=== PATIENT | female | born 1950 | race African-American/Black ===

== ENCOUNTER 2021-07-28 23:08 | Inpatient (IN) | payer OTHER ==
[~2021-07-28] VITALS: Ht 165.1 cm; Wt 81.6 kg
[2021-07-28] MEDS ORDERED: SODIUM CHLORIDE 0.9% 1,000 ML IV ONE (23:30)
[2021-07-28 23:58] LABS: BASOPHILS % 0.2 % (0.0-2.0); EOSINOPHILS % 0.2 % (0.0-5.0); HEMATOCRIT. 44.6 % (36.0-48.0); HEMOGLOBIN. 14.6 g/dL (12.0-16.0); LYMPHOCYTES % 19.6 % (20.0-50.0); MEAN CORPUSCULAR HEMOGLOBIN 27.6 pg (28.0-32.0); MEAN CORPUSCULAR VOLUME 84.2 fL (81.0-99.0); MEAN PLATELET VOLUME 8.5 fl (7.4-10.4); MONOCYTES % 8.8 % (2.0-8.0); NEUTROPHILS % 71.2 % (40.0-76.0); PLATELET 505 x1000/uL (130-400); RED CELL DISTRIBUTION WIDTH 15.1 % (11.6-14.6)
[2021-07-29 00:01] LABS: CLARITY URINE CLOUDY (CLEAR); COLOR URINE YELLOW (YELLOW); KETONES URINE TRACE (NEGATIVE); LEUKOCYTE ESTERASE URINE TRACE (NEGATIVE); NITRITE URINE NEGATIVE (NEGATIVE); OCCULT BLOOD URINE NEGATIVE (NEGATIVE); PROTEIN URINE TRACE (NEGATIVE); SPECIFIC GRAVITY URINE 1.021 (1.005-1.030); UROBILINOGEN URINE 0.2 E.U./dL (0.2-1.0)
[2021-07-29 00:06] LABS: CHLORIDE 128 mEq/L (98-107)
[2021-07-29 00:15] LABS: CREATINE KINASE 66 IU/L (26-192)
[2021-07-29] MEDS ORDERED: CEFTRIAXONE 1 G PREMIX 50 ML IV NR (00:30)
[2021-07-29] MEDS ORDERED: SODIUM CHLORIDE 0.9% 1000ML BAG (SEPSIS BOLUS) IV NR (01:00)
[2021-07-29 05:35] VITALS: BP 109/47
[2021-07-29] MEDS ORDERED: AMLO5TAB4 PO (07:45)
[2021-07-29] MEDS ORDERED: MULT-230 PO (07:45)
[2021-07-29] MEDS ORDERED: ASPI-1406 PO (07:45)
[2021-07-29] MEDS ORDERED: COR25 PO (07:45)
[2021-07-29] MEDS ORDERED: VALS160T28 PO (07:45)
[2021-07-29] MEDS ORDERED: ATOR80TA PO (07:45)
[2021-07-29 08:08] VITALS: BP 109/61
[2021-07-29] MEDS ORDERED: NA P230E RC (08:10)
[2021-07-29] MEDS ORDERED: MOM MT (08:10)
[2021-07-29] MEDS ORDERED: BISA10SU62 RC (08:10)
[2021-07-29] MEDS ORDERED: ASPIRIN 81MG TABLET PO SCH (09:00)
[2021-07-29] MEDS ORDERED: DEXT 5%/0.9% NACL 1,000 ML IV SCH (09:00)
[2021-07-29 12:13] VITALS: BP 125/77
[2021-07-29] MEDS: DEXTROSE 5% WATER 1,000 ML IV SCH ×2 (14:49→22:20)
[2021-07-29] MEDS: ENOXAPARIN 40MG/0.4ML SYR SUBCUT SCH (14:50)
[2021-07-29 14:55] LABS: T4 FREE 1.39 ng/dL (0.76-1.46)
[2021-07-29 15:24] LABS: VITAMIN B12 SERUM >2000 pg/mL pg/mL (211-911)
[2021-07-29 16:08] VITALS: BP 109/61
[2021-07-29] MEDS: FOLIC ACID 1MG TABLET PO SCH (19:00)
[2021-07-29 20:00] VITALS: BP 140/60
[2021-07-30] VITALS: BP 103/66
[2021-07-30 04:00] VITALS: BP_SYST 122; BP_SYST 146; BP_DIAS 62; BP_DIAS 77
[2021-07-30 08:36] LABS: HEMATOCRIT. 40.1 % (36.0-48.0); MEAN CORPUSCULAR HEMOGLOBIN 27.5 pg (28.0-32.0); MEAN CORPUSCULAR VOLUME 84.7 fL (81.0-99.0); MEAN PLATELET VOLUME 8.5 fl (7.4-10.4); PLATELET 340 x1000/uL (130-400); RED BLOOD CELL COUNT 4.74 mill/uL (4.2-5.4); RED CELL DISTRIBUTION WIDTH 15.4 % (11.6-14.6)
[2021-07-30 08:42] LABS: CHLORIDE 130 mEq/L (98-107)
[2021-07-30] MEDS: FOLIC ACID 1MG TABLET PO SCH (10:01)
[2021-07-30] MEDS: CLOPIDOGREL 75MG TABLET PO SCH (10:02)
[2021-07-30] MEDS: ENOXAPARIN 40MG/0.4ML SYR SUBCUT SCH (10:02)
[2021-07-30 10:48] LABS: PLATELET ESTIMATE NORMAL
[2021-07-30] MEDS ORDERED: POTASSIUM CHLORIDE INJ 40 MEQ in DEXT 5% WATER 250 ML IV ONE (11:45)
[2021-07-30 12:00] VITALS: BP 97/41
[2021-07-30] MEDS: KCL 20MEQ/100ML X 2 FOR TOTAL KCL 40MEQ/200ML IV SCH ×2 (15:00→15:35)
[2021-07-30] MEDS: DEXTROSE 5% WATER 1,000 ML IV SCH (15:38)
[2021-07-30 16:00] VITALS: BP 90/64
[2021-07-30] MEDS: POTASSIUM CHLORIDE 20MEQ/PACKET PO SCH (18:18)
[2021-07-30 20:00] VITALS: BP 130/58
[2021-07-31] VITALS: BP 124/58
[2021-07-31] MEDS: DEXTROSE 5% WATER 1,000 ML IV SCH ×3 (01:02→14:20)
[2021-07-31 04:00] VITALS: BP 135/54
[2021-07-31 08:00] VITALS: BP 113/48
[2021-07-31] MEDS: CLOPIDOGREL 75MG TABLET PO SCH ×2 (09:00→10:24)
[2021-07-31] MEDS: POTASSIUM CHLORIDE 20MEQ/PACKET PO SCH ×2 (09:00→10:24)
[2021-07-31] MEDS: FOLIC ACID 1MG TABLET PO SCH ×2 (09:00→10:24)
[2021-07-31] MEDS: ENOXAPARIN 40MG/0.4ML SYR SUBCUT SCH (10:24)
[2021-07-31 12:00] VITALS: BP 138/69
[2021-07-31 20:00] VITALS: BP 154/73
[2021-07-31] MEDS: ENOXAPARIN 80MG/0.8ML SYR SUBCUT SCH (22:01)
[2021-08-01] VITALS (23 sets, daily range): BP systolic 89–158; BP diastolic 48–82
[2021-08-01] MEDS: DEXTROSE 5% WATER 1,000 ML IV SCH (03:55)
[2021-08-01 07:23] LABS: CHLORIDE 126 mEq/L (98-107)
[2021-08-01] MEDS ORDERED: LIDOCAINE HCL 1% 20ML VIAL (Pyxis) INJ ONE (07:28)
[2021-08-01] MEDS: FOLIC ACID 1MG TABLET PO SCH (09:02)
[2021-08-01] MEDS: ENOXAPARIN 80MG/0.8ML SYR SUBCUT SCH (09:02)
[2021-08-01] MEDS: POTASSIUM CHLORIDE 20MEQ/PACKET PO SCH (09:02)
[2021-08-01 12:14] LABS: BASOPHILS % 0.2 % (0.0-2.0); EOSINOPHILS % 0.5 % (0.0-5.0); HEMATOCRIT. 39.8 % (36.0-48.0); HEMOGLOBIN. 12.7 g/dL (12.0-16.0); LYMPHOCYTES % 19.3 % (20.0-50.0); MEAN CORPUSCULAR HEMOGLOBIN 26.8 pg (28.0-32.0); MEAN CORPUSCULAR VOLUME 83.8 fL (81.0-99.0); MEAN PLATELET VOLUME 8.8 fl (7.4-10.4); MONOCYTES % 9.4 % (2.0-8.0); NEUTROPHILS % 70.6 % (40.0-76.0); PLATELET 301 x1000/uL (130-400); RED BLOOD CELL COUNT 4.76 mill/uL (4.2-5.4)
[2021-08-01 16:23] LABS: INR 2.1; PROTHROMBIN TIME 21.7 sec (9.6-11.0)
[2021-08-01] MEDS: LACTULOSE 20G/30ML UDC PO SCH (21:41)
[2021-08-01 22:53] LABS: BASOPHILS % 0.1 % (0.0-2.0); EOSINOPHILS % 0.2 % (0.0-5.0); HEMATOCRIT. 40.5 % (36.0-48.0); HEMOGLOBIN. 12.8 g/dL (12.0-16.0); LYMPHOCYTES % 18.6 % (20.0-50.0); MEAN CORPUSCULAR HEMOGLOBIN 27.2 pg (28.0-32.0); MEAN CORPUSCULAR VOLUME 85.7 fL (81.0-99.0); MEAN PLATELET VOLUME 8.8 fl (7.4-10.4); MONOCYTES % 12.3 % (2.0-8.0); NEUTROPHILS % 68.8 % (40.0-76.0); PLATELET 317 x1000/uL (130-400); RED BLOOD CELL COUNT 4.72 mill/uL (4.2-5.4); RED CELL DISTRIBUTION WIDTH 15.3 % (11.6-14.6)
[2021-08-02] VITALS (96 sets, daily range): BP systolic 99–169; BP diastolic 49–105
[2021-08-02] MEDS: LACTULOSE 20G/30ML UDC PO SCH ×3 (06:00→22:00)
[2021-08-02 06:06] LABS: BASOPHILS % 0.1 % (0.0-2.0); CHLORIDE 129 mEq/L (98-107); EOSINOPHILS % 0.3 % (0.0-5.0); HEMATOCRIT. 32.5 % (36.0-48.0); HEMOGLOBIN. 10.8 g/dL (12.0-16.0); LYMPHOCYTES % 18.8 % (20.0-50.0); MEAN CORPUSCULAR HEMOGLOBIN 27.7 pg (28.0-32.0); MEAN CORPUSCULAR VOLUME 83.1 fL (81.0-99.0); MEAN PLATELET VOLUME 8.7 fl (7.4-10.4); MONOCYTES % 9.3 % (2.0-8.0); NEUTROPHILS % 71.5 % (40.0-76.0); PLATELET 288 x1000/uL (130-400); RED BLOOD CELL COUNT 3.91 mill/uL (4.2-5.4)
[2021-08-02] MEDS: FOLIC ACID 1MG TABLET PO SCH (08:23)
[2021-08-02] MEDS: POTASSIUM CHLORIDE 20MEQ/PACKET PO SCH (08:23)
[2021-08-02] MEDS: DEXTROSE 5% WATER 1,000 ML IV SCH ×2 (08:24→19:51)
[2021-08-03] VITALS (96 sets, daily range): BP systolic 105–180; BP diastolic 53–142
[2021-08-03] MEDS: LACTULOSE 20G/30ML UDC PO SCH ×3 (05:29→22:33)
[2021-08-03 06:09] LABS: INR 2.1; PROTHROMBIN TIME 20.9 sec (9.6-11.0)
[2021-08-03 06:10] LABS: BASOPHILS % 0.2 % (0.0-2.0); EOSINOPHILS % 0.6 % (0.0-5.0); HEMATOCRIT. 29.2 % (36.0-48.0); HEMOGLOBIN. 9.8 g/dL (12.0-16.0); LYMPHOCYTES % 21.4 % (20.0-50.0); MEAN CORPUSCULAR HEMOGLOBIN 27.9 pg (28.0-32.0); MEAN CORPUSCULAR VOLUME 82.9 fL (81.0-99.0); MEAN PLATELET VOLUME 8.6 fl (7.4-10.4); MONOCYTES % 8.8 % (2.0-8.0); PLATELET 226 x1000/uL (130-400); RED BLOOD CELL COUNT 3.53 mill/uL (4.2-5.4); RED CELL DISTRIBUTION WIDTH 14.8 % (11.6-14.6)
[2021-08-03 06:16] LABS: CHLORIDE 122 mEq/L (98-107)
[2021-08-03] MEDS: DEXTROSE 5% WATER 1,000 ML IV SCH ×2 (08:49→22:44)
[2021-08-03] MEDS: FOLIC ACID 1MG TABLET PO SCH (08:49)
[2021-08-03] MEDS: POTASSIUM CHLORIDE 20MEQ/PACKET PO SCH (08:49)
[2021-08-04] VITALS (62 sets, daily range): BP systolic 124–185; BP diastolic 54–108
[2021-08-04] MEDS: LACTULOSE 20G/30ML UDC PO SCH ×4 (06:35→22:30)
[2021-08-04] MEDS: FOLIC ACID 1MG TABLET PO SCH (09:37)
[2021-08-04] MEDS: POTASSIUM CHLORIDE 20MEQ/PACKET PO SCH (09:37)
[2021-08-04] MEDS: CLOPIDOGREL 75MG TABLET PO SCH (16:45)
[2021-08-04 17:50] LABS: BASOPHILS % 0.1 % (0.0-2.0); EOSINOPHILS % 0.7 % (0.0-5.0); HEMATOCRIT. 31.1 % (36.0-48.0); HEMOGLOBIN. 10.3 g/dL (12.0-16.0); MEAN CORPUSCULAR HEMOGLOBIN 27.5 pg (28.0-32.0); MEAN CORPUSCULAR VOLUME 82.7 fL (81.0-99.0); MEAN PLATELET VOLUME 8.6 fl (7.4-10.4); MONOCYTES % 9.1 % (2.0-8.0); NEUTROPHILS % 70.1 % (40.0-76.0); PLATELET 237 x1000/uL (130-400); RED BLOOD CELL COUNT 3.76 mill/uL (4.2-5.4); RED CELL DISTRIBUTION WIDTH 14.8 % (11.6-14.6)
[2021-08-04 18:03] LABS: CHLORIDE 123 mEq/L (98-107)
[2021-08-04] MEDS ORDERED: POTASSIUM CHLORIDE INJ 40 MEQ in DEXT 5% WATER 250 ML IV ONE (18:30)
[2021-08-04] MEDS: KCL 20MEQ/100ML PREMIX 100 ML IV SCH ×4 (18:45→20:54)
[2021-08-04] MEDS: RIFAXIMIN 550 MG TABLET PO SCH ×2 (20:57→21:00)
[2021-08-04] MEDS ORDERED: POTASSIUM CHLORIDE 20MEQ/PACKET PO NR (23:00)
[2021-08-04] MEDS ORDERED: CLONIDINE 0.1MG TABLET PO PRN (23:00)
[2021-08-04] MEDS: AMLODIPINE 5MG TABLET PO SCH (23:06)
[2021-08-05] VITALS (52 sets, daily range): BP systolic 119–181; BP diastolic 62–143
[2021-08-05] MEDS: LACTULOSE 20G/30ML UDC PO SCH ×3 (06:00→22:00)
[2021-08-05] MEDS: RIFAXIMIN 550 MG TABLET PO SCH ×2 (08:28→20:16)
[2021-08-05] MEDS: FOLIC ACID 1MG TABLET PO SCH (08:28)
[2021-08-05] MEDS: CLOPIDOGREL 75MG TABLET PO SCH (08:28)
[2021-08-05] MEDS: POTASSIUM CHLORIDE 20MEQ/PACKET PO SCH (08:29)
[2021-08-05] MEDS: AMLODIPINE 5MG TABLET PO SCH ×2 (08:29→17:00)
[2021-08-05] MEDS: HYDRALAZINE HCL 50MG TABLET PO SCH ×2 (10:13→20:16)
[2021-08-05] MEDS ORDERED: HYDRALAZINE 20MG/ML VIAL IV PRN (10:30)
[2021-08-05 11:34] LABS: CHLORIDE 118 mEq/L (98-107)
[2021-08-05 11:42] LABS: BASOPHILS % 0.1 % (0.0-2.0); EOSINOPHILS % 0.7 % (0.0-5.0); HEMATOCRIT. 30.8 % (36.0-48.0); LYMPHOCYTES % 25.8 % (20.0-50.0); MEAN CORPUSCULAR HEMOGLOBIN 27.1 pg (28.0-32.0); MEAN CORPUSCULAR VOLUME 83.8 fL (81.0-99.0); MEAN PLATELET VOLUME 8.5 fl (7.4-10.4); MONOCYTES % 7.2 % (2.0-8.0); NEUTROPHILS % 66.2 % (40.0-76.0); PLATELET 271 x1000/uL (130-400); RED BLOOD CELL COUNT 3.68 mill/uL (4.2-5.4); RED CELL DISTRIBUTION WIDTH 15.2 % (11.6-14.6)
[2021-08-05] MEDS ORDERED: MORPHINE SULFATE 2 MG/ML CPJ (NOT FOR IM USE) IV NR (13:30)
[2021-08-05] MEDS: DEXTROSE 5% WATER 1,000 ML IV SCH (14:59)
[2021-08-06 04:00] VITALS: BP 148/72
[2021-08-06] MEDS: LACTULOSE 20G/30ML UDC PO SCH ×3 (05:28→20:49)
[2021-08-06] MEDS: DEXTROSE 5% WATER 1,000 ML IV SCH ×2 (05:28→16:37)
[2021-08-06 06:14] LABS: CHLORIDE 117 mEq/L (98-107)
[2021-08-06 06:27] LABS: BASOPHILS % 0.1 % (0.0-2.0); EOSINOPHILS % 1.4 % (0.0-5.0); HEMATOCRIT. 30.7 % (36.0-48.0); HEMOGLOBIN. 10.3 g/dL (12.0-16.0); LYMPHOCYTES % 36.4 % (20.0-50.0); MEAN CORPUSCULAR HEMOGLOBIN 27.9 pg (28.0-32.0); MEAN CORPUSCULAR VOLUME 82.8 fL (81.0-99.0); MEAN PLATELET VOLUME 8.6 fl (7.4-10.4); MONOCYTES % 6.5 % (2.0-8.0); NEUTROPHILS % 55.6 % (40.0-76.0); PLATELET 301 x1000/uL (130-400); RED BLOOD CELL COUNT 3.71 mill/uL (4.2-5.4); RED CELL DISTRIBUTION WIDTH 14.8 % (11.6-14.6)
[2021-08-06 08:35] VITALS: BP 113/48
[2021-08-06] MEDS: FOLIC ACID 1MG TABLET PO SCH (09:00)
[2021-08-06] MEDS: HYDRALAZINE HCL 50MG TABLET PO SCH ×2 (09:00→20:49)
[2021-08-06] MEDS: POTASSIUM CHLORIDE 20MEQ/PACKET PO SCH (09:00)
[2021-08-06] MEDS: RIFAXIMIN 550 MG TABLET PO SCH ×2 (09:00→20:49)
[2021-08-06] MEDS: AMLODIPINE 5MG TABLET PO SCH ×2 (09:00→16:01)
[2021-08-06] MEDS: CLOPIDOGREL 75MG TABLET PO SCH (09:00)
[2021-08-06 11:30] VITALS: BP 117/72
[2021-08-06 15:40] VITALS: BP 106/58
[2021-08-06 20:00] VITALS: BP 117/48
[2021-08-07] VITALS: BP 128/55
[2021-08-07 04:00] VITALS: BP 110/57
[2021-08-07] MEDS: DEXTROSE 5% WATER 1,000 ML IV SCH ×2 (05:40→19:40)
[2021-08-07] MEDS: LACTULOSE 20G/30ML UDC PO SCH ×3 (05:40→22:00)
[2021-08-07 06:49] LABS: BASOPHILS % 0.2 % (0.0-2.0); EOSINOPHILS % 1.5 % (0.0-5.0); HEMATOCRIT. 29.5 % (36.0-48.0); LYMPHOCYTES % 43.9 % (20.0-50.0); MEAN CORPUSCULAR VOLUME 82.5 fL (81.0-99.0); MEAN PLATELET VOLUME 8.2 fl (7.4-10.4); MONOCYTES % 6.8 % (2.0-8.0); NEUTROPHILS % 47.6 % (40.0-76.0); PLATELET 308 x1000/uL (130-400); RED BLOOD CELL COUNT 3.58 mill/uL (4.2-5.4)
[2021-08-07 07:12] LABS: CHLORIDE 111 mEq/L (98-107)
[2021-08-07 08:00] VITALS: BP 93/58
[2021-08-07] MEDS: FOLIC ACID 1MG TABLET PO SCH (08:31)
[2021-08-07] MEDS: HYDRALAZINE HCL 50MG TABLET PO SCH ×2 (08:31→21:00)
[2021-08-07] MEDS: AMLODIPINE 5MG TABLET PO SCH ×2 (08:32→16:07)
[2021-08-07] MEDS: CLOPIDOGREL 75MG TABLET PO SCH (08:32)
[2021-08-07] MEDS: POTASSIUM CHLORIDE 20MEQ/PACKET PO SCH (08:32)
[2021-08-07] MEDS: RIFAXIMIN 550 MG TABLET PO SCH ×2 (08:32→21:00)
[2021-08-07 12:00] VITALS: BP 128/54
[2021-08-07 16:00] VITALS: BP 113/65
[2021-08-07 20:00] VITALS: BP 130/64
[2021-08-08] VITALS: BP 114/63
[2021-08-08 04:00] VITALS: BP 109/49
[2021-08-08] MEDS: LACTULOSE 20G/30ML UDC PO SCH ×3 (06:00→21:55)
[2021-08-08 06:38] LABS: BASOPHILS % 0.1 % (0.0-2.0); EOSINOPHILS % 0.8 % (0.0-5.0); HEMATOCRIT. 26.5 % (36.0-48.0); HEMOGLOBIN. 8.7 g/dL (12.0-16.0); MEAN CORPUSCULAR VOLUME 81.8 fL (81.0-99.0); MEAN PLATELET VOLUME 7.6 fl (7.4-10.4); NEUTROPHILS % 67.1 % (40.0-76.0); PLATELET 255 x1000/uL (130-400); RED BLOOD CELL COUNT 3.24 mill/uL (4.2-5.4); RED CELL DISTRIBUTION WIDTH 14.8 % (11.6-14.6)
[2021-08-08 08:00] VITALS: BP 105/54
[2021-08-08] MEDS: AMLODIPINE 5MG TABLET PO SCH ×2 (08:32→16:56)
[2021-08-08] MEDS: HYDRALAZINE HCL 50MG TABLET PO SCH ×2 (08:32→21:00)
[2021-08-08] MEDS: DEXTROSE 5% WATER 1,000 ML IV SCH ×2 (09:00→21:55)
[2021-08-08] MEDS: CLOPIDOGREL 75MG TABLET PO SCH (09:00)
[2021-08-08] MEDS: POTASSIUM CHLORIDE 20MEQ/PACKET PO SCH (09:00)
[2021-08-08] MEDS: FOLIC ACID 1MG TABLET PO SCH (09:00)
[2021-08-08] MEDS: RIFAXIMIN 550 MG TABLET PO SCH ×2 (09:00→21:00)
[2021-08-08 09:35] LABS: CHLORIDE 114 mEq/L (98-107)
[2021-08-08] MEDS ORDERED: POTASSIUM CHLORIDE INJ 40 MEQ in DEXT 5% WATER 250 ML IV ONE (10:15)
[2021-08-08 12:00] VITALS: BP 129/66
[2021-08-08] MEDS ORDERED: KCL 20MEQ/100ML X 2 FOR TOTAL KCL 40MEQ/200ML IV SCH (12:00)
[2021-08-08] MEDS ORDERED: POTASSIUM CHLORIDE 20MEQ TABLET SR PO NR (15:45)
[2021-08-08] MEDS ORDERED: POTASSIUM CHLORIDE 20MEQ TABLET SR PO ONE (15:45)
[2021-08-08 16:00] VITALS: BP 151/55
[2021-08-08 20:00] VITALS: BP 140/76
[2021-08-09] VITALS: BP 98/66
[2021-08-09 04:00] VITALS: BP 120/66
[2021-08-09] MEDS: LACTULOSE 20G/30ML UDC PO SCH ×3 (06:00→21:10)
[2021-08-09 07:04] LABS: BASOPHILS % 0.2 % (0.0-2.0); EOSINOPHILS % 0.9 % (0.0-5.0); HEMOGLOBIN. 9.1 g/dL (12.0-16.0); LYMPHOCYTES % 35.1 % (20.0-50.0); MEAN CORPUSCULAR HEMOGLOBIN 27.8 pg (28.0-32.0); MEAN CORPUSCULAR VOLUME 82.9 fL (81.0-99.0); MEAN PLATELET VOLUME 7.4 fl (7.4-10.4); MONOCYTES % 7.9 % (2.0-8.0); NEUTROPHILS % 55.9 % (40.0-76.0); PLATELET 279 x1000/uL (130-400); RED BLOOD CELL COUNT 3.26 mill/uL (4.2-5.4); RED CELL DISTRIBUTION WIDTH 14.8 % (11.6-14.6)
[2021-08-09 07:18] LABS: CHLORIDE 116 mEq/L (98-107)
[2021-08-09 08:00] VITALS: BP 136/61
[2021-08-09] MEDS: FOLIC ACID 1MG TABLET PO SCH (09:00)
[2021-08-09] MEDS: AMLODIPINE 5MG TABLET PO SCH ×2 (09:00→17:00)
[2021-08-09] MEDS: POTASSIUM CHLORIDE 20MEQ TABLET SR PO SCH (09:00)
[2021-08-09] MEDS: CLOPIDOGREL 75MG TABLET PO SCH (09:00)
[2021-08-09] MEDS: RIFAXIMIN 550 MG TABLET PO SCH ×2 (09:00→21:00)
[2021-08-09] MEDS: HYDRALAZINE HCL 50MG TABLET PO SCH ×2 (09:00→21:00)
[2021-08-09] MEDS: DEXTROSE 5% WATER 1,000 ML IV SCH (11:40)
[2021-08-09 12:00] VITALS: BP 144/76
[2021-08-09 16:00] VITALS: BP 137/59
[2021-08-09 20:00] VITALS: BP 122/75
[2021-08-10] VITALS: BP 170/82
[2021-08-10] MEDS: DEXTROSE 5% WATER 1,000 ML IV SCH ×2 (01:00→13:44)
[2021-08-10 04:00] VITALS: BP 138/68
[2021-08-10 08:00] VITALS: BP 150/74
[2021-08-10 08:06] LABS: CHLORIDE 116 mEq/L (98-107)
[2021-08-10 08:18] LABS: BASOPHILS % 0.4 % (0.0-2.0); EOSINOPHILS % 0.8 % (0.0-5.0); HEMATOCRIT. 25.6 % (36.0-48.0); HEMOGLOBIN. 8.9 g/dL (12.0-16.0); MEAN CORPUSCULAR HEMOGLOBIN 28.7 pg (28.0-32.0); MEAN CORPUSCULAR VOLUME 82.9 fL (81.0-99.0); MEAN PLATELET VOLUME 7.2 fl (7.4-10.4); MONOCYTES % 9.1 % (2.0-8.0); NEUTROPHILS % 61.7 % (40.0-76.0); PLATELET 252 x1000/uL (130-400); RED BLOOD CELL COUNT 3.09 mill/uL (4.2-5.4); RED CELL DISTRIBUTION WIDTH 15.2 % (11.6-14.6)
[2021-08-10] MEDS: CLOPIDOGREL 75MG TABLET PO SCH (08:26)
[2021-08-10] MEDS: AMLODIPINE 5MG TABLET PO SCH ×2 (08:26→16:19)
[2021-08-10] MEDS: POTASSIUM CHLORIDE 20MEQ TABLET SR PO SCH (08:26)
[2021-08-10] MEDS: HYDRALAZINE HCL 50MG TABLET PO SCH ×2 (08:26→21:43)
[2021-08-10] MEDS: FOLIC ACID 1MG TABLET PO SCH (08:26)
[2021-08-10 12:00] VITALS: BP 150/73
[2021-08-10] MEDS: LACTULOSE 20G/30ML UDC PO SCH ×2 (13:44→21:41)
[2021-08-10 16:00] VITALS: BP 139/67
[2021-08-10 20:00] VITALS: BP 161/58
[2021-08-11] VITALS: BP 111/51
[2021-08-11] MEDS: DEXTROSE 5% WATER 1,000 ML IV SCH (03:40)
[2021-08-11 04:00] VITALS: BP 148/62
[2021-08-11] MEDS: LACTULOSE 20G/30ML UDC PO SCH (05:18)
[2021-08-11 06:40] LABS: BASOPHILS % 0.5 % (0.0-2.0); EOSINOPHILS % 0.8 % (0.0-5.0); HEMOGLOBIN. 9.4 g/dL (12.0-16.0); LYMPHOCYTES % 23.8 % (20.0-50.0); MEAN CORPUSCULAR HEMOGLOBIN 28.3 pg (28.0-32.0); MEAN CORPUSCULAR VOLUME 84.2 fL (81.0-99.0); MEAN PLATELET VOLUME 7.1 fl (7.4-10.4); MONOCYTES % 9.3 % (2.0-8.0); NEUTROPHILS % 65.6 % (40.0-76.0); PLATELET 268 x1000/uL (130-400); RED BLOOD CELL COUNT 3.33 mill/uL (4.2-5.4); RED CELL DISTRIBUTION WIDTH 15.4 % (11.6-14.6)
[2021-08-11 07:15] LABS: CHLORIDE 117 mEq/L (98-107)
[2021-08-11 08:00] VITALS: BP 139/50
[2021-08-11] MEDS: CLOPIDOGREL 75MG TABLET PO SCH (09:59)
[2021-08-11] MEDS: POTASSIUM CHLORIDE 20MEQ TABLET SR PO SCH (09:59)
[2021-08-11] MEDS: FOLIC ACID 1MG TABLET PO SCH (09:59)
[2021-08-11] MEDS: AMLODIPINE 5MG TABLET PO SCH ×2 (09:59→18:45)
[2021-08-11] MEDS: HYDRALAZINE HCL 50MG TABLET PO SCH ×2 (09:59→21:00)
[2021-08-11 12:00] VITALS: BP 137/71
[2021-08-11 16:00] VITALS: BP 133/58
[2021-08-11 20:00] VITALS: BP 140/54
[2021-08-11] MEDS ORDERED: ONDANSETRON HCL 4MG/2ML INJ IV PRN (20:15)
[2021-08-12] VITALS: BP 122/52
[2021-08-12 04:00] VITALS: BP 152/75
[2021-08-12] MEDS: DEXTROSE 5% WATER 1,000 ML IV SCH (06:20)
[2021-08-12 08:00] VITALS: BP 134/72
[2021-08-12] MEDS: HYDRALAZINE HCL 50MG TABLET PO SCH (09:00)
[2021-08-12] MEDS: CLOPIDOGREL 75MG TABLET PO SCH (09:11)
[2021-08-12] MEDS: FOLIC ACID 1MG TABLET PO SCH (09:11)
[2021-08-12] MEDS: POTASSIUM CHLORIDE 20MEQ TABLET SR PO SCH (09:11)
[2021-08-12] MEDS: AMLODIPINE 5MG TABLET PO SCH (09:11)
[2021-08-12 09:29] LABS: BASOPHILS % 0.4 % (0.0-2.0); EOSINOPHILS % 0.8 % (0.0-5.0); HEMATOCRIT. 28.8 % (36.0-48.0); HEMOGLOBIN. 9.7 g/dL (12.0-16.0); LYMPHOCYTES % 29.3 % (20.0-50.0); MEAN CORPUSCULAR VOLUME 83.2 fL (81.0-99.0); MEAN PLATELET VOLUME 7.1 fl (7.4-10.4); MONOCYTES % 9.8 % (2.0-8.0); NEUTROPHILS % 59.7 % (40.0-76.0); PLATELET 268 x1000/uL (130-400); RED BLOOD CELL COUNT 3.46 mill/uL (4.2-5.4); RED CELL DISTRIBUTION WIDTH 15.7 % (11.6-14.6)
[2021-08-12 09:40] LABS: CHLORIDE 119 mEq/L (98-107)
== END 2021-08-12 13:20 | DRG 64 ==
LOC: ER 23:08 → 6WST 07-29 01:34 → ENRESERV 07-29 04:21 → CVICU 08-01 16:34 → 6WST 08-05 22:40
PROVIDERS: ADMIT Internal Medicine Nephrology; ATTEND Internal Medicine Nephrology
PROC: 4A10X4Z Monitoring of Central Nervous Electrical Activity, External Approach (ICD-10-PCS; principal; 2021-07-29)
PROC: 02HV33Z Insertion of Infusion Device into Superior Vena Cava, Percutaneous Approach (ICD-10-PCS; 2021-08-01)
PROC: B548ZZA Ultrasonography of Superior Vena Cava, Guidance (ICD-10-PCS; 2021-08-01)
PROC: B5181ZA Fluoroscopy of Superior Vena Cava using Low Osmolar Contrast, Guidance (ICD-10-PCS; 2021-08-01)
DX: I63.89 Other cerebral infarction (principal); E43 Unspecified severe protein-calorie malnutrition; G92.8 Other toxic encephalopathy; R57.1 Hypovolemic shock; N17.0 Acute kidney failure with tubular necrosis; E87.1 Hypo-osmolality and hyponatremia; N39.0 Urinary tract infection, site not specified; G81.91 Hemiplegia, unspecified affecting right dominant side; E87.0 Hyperosmolality and hypernatremia; K92.2 Gastrointestinal hemorrhage, unspecified; T82.838A Hemorrhage due to vascular prosthetic devices, implants and grafts, initial encounter; R71.0 Precipitous drop in hematocrit; E78.00 Pure hypercholesterolemia, unspecified; E87.8 Other disorders of electrolyte and fluid balance, not elsewhere classified; Y83.8 Other surgical procedures as the cause of abnormal reaction of the patient, or of later complication, without mention of misadventure at the time of the procedure; Y92.238 Other place in hospital as the place of occurrence of the external cause; I10 Essential (primary) hypertension; N95.0 Postmenopausal bleeding; I48.0 Paroxysmal atrial fibrillation; Z20.822 Contact with and (suspected) exposure to COVID-19; Z79.02 Long term (current) use of antithrombotics/antiplatelets; Z68.30 Body mass index [BMI] 30.0-30.9, adult; Z79.82 Long term (current) use of aspirin; Z79.899 Other long term (current) drug therapy
CPT/HCPCS: 36415; 36573; 70551; 71045; 80048; 80053; 80061; 80076; 81003; 82140; 82270; 82550; 82607; 82746; 82962; 83036; 83605; 84439; 84443; 84481; 85014; 85018; 85025; 85044; 86850; 86900; 86920; 87426; 92610; 93005; 93306; 93880; 97110; 97112; 97162; 97164; 97166; 97530; 97535; 99285; C1725; C1893; J0360; J0696; J1650; J3480; J3490; J7030; J7040; J7042; J7070